=== PATIENT | male | born 1955 | race Caucasian/White ===

== ENCOUNTER 2020-09-06 16:30 | Emergency (ER) | payer MEDICAID ==
[~2020-09-06] VITALS: Ht 177.8 cm; Wt 113.4 kg
--- NOTE | 2020-09-06 16:45 | NUR ---
BIB Son "Lost balance/footing -Fell hurt Left Foot/ankle" Patient a/ox4, breathing even and unlabored, no sob noted. family at bedside. Elliott CARR at bedside for eval
[2020-09-06] MEDS ORDERED: METO-358 PO (16:50)
[2020-09-06] MEDS ORDERED: ASPI-1420 PO (16:50)
[2020-09-06] MEDS ORDERED: AMLO-213 PO (16:50)
[2020-09-06] MEDS ORDERED: ATOR80TA PO (16:50)
--- NOTE | 2020-09-06 16:55 | NUR ---
X-RAY TECH AT BEDSIDE.
[2020-09-06] MEDS ORDERED: HYDROCODONE/APAP 5/325MG TABLET ONE (16:56)
[2020-09-06] MEDS: HYDROCODONE/APAP 5/325MG TABLET PO ONE (16:58)
[2020-09-06] MEDS ORDERED: HYDR-4303 PO (17:32)
[2020-09-06] MEDS ORDERED: ACET-2605 PO (17:32)
[2020-09-06] MEDS ORDERED: TRAMADOL HCL 50 MG TABLET ONE (17:38)
[2020-09-06] MEDS: TRAMADOL HCL 50 MG TABLET PO ONE (17:42)
--- NOTE | 2020-09-06 18:04 | NUR ---
SPLINT BEING APPLIED ON LLE. POSTERIOR SHORT LEG, 4 INCH.
--- NOTE | 2020-09-06 18:26 | NUR ---
Splint applied, crutches provided, gait training done. Patient discharged to home in stable condition. Written and verbal after care instructions given. Patient verbalizes understanding of instruction.
[2020-09-06 18:30] VITALS: BP 188/103
== END 2020-09-06 18:30 | disposition home or self-care (01) ==
LOC: ER 16:40
DX: S92.002A Unspecified fracture of left calcaneus, initial encounter for closed fracture (principal); I10 Essential (primary) hypertension; E78.00 Pure hypercholesterolemia, unspecified; Z86.73 Personal history of transient ischemic attack (TIA), and cerebral infarction without residual deficits; Z79.899 Other long term (current) drug therapy; Z79.82 Long term (current) use of aspirin; X50.1XXA Overexertion from prolonged static or awkward postures, initial encounter; Y93.89 Activity, other specified; Y92.89 Other specified places as the place of occurrence of the external cause; Y99.8 Other external cause status
CPT/HCPCS: 73610-TC